=== PATIENT | female | born 2000 | race Caucasian/White ===

== ENCOUNTER 2018-02-08 13:16 | Outpatient (CLI) | payer MEDICAID, SELFPAY ==
[2018-02-09 11:05] LABS: Hepatitis C Ab w Rflx HCV PCR Negative (NEGAT)
[2018-02-09 11:06] LABS: Hepatitis B Surface Ag Negative (NEGAT)
[2018-02-09 11:24] LABS: HIV-1/2 Ag & Ab Screen Negative (NEGAT)
[2018-02-09 14:06] LABS: Syphilis Serology (RPR) Negative (Negative)
== END 2018-02-08 13:17 ==
PROVIDERS: PCP Pediatrics; Visit Provider Nurse Practitioner Women's Health
DX: Z11.3 Encounter for screening for infections with a predominantly sexual mode of transmission (principal); Z11.4 Encounter for screening for human immunodeficiency virus [HIV]; Z11.59 Encounter for screening for other viral diseases
CPT/HCPCS: 36415; 86803; 87340; 87389; 87491; 87591; 86592

== ENCOUNTER 2018-02-08 13:41 | Outpatient (REF) | payer MEDICAID, SELFPAY ==
[2018-02-09 14:35] LABS: Chlamydia Result Negative; GC Result Negative; Specimen Description CERVIX
== END 2018-02-08 13:42 ==
LOC: LBN 13:41
PROVIDERS: PCP Pediatrics; Visit Provider Nurse Practitioner Women's Health
DX: Z11.3 Encounter for screening for infections with a predominantly sexual mode of transmission (principal)
CPT/HCPCS: 87491; 87591

== ENCOUNTER 2018-02-22 01:04 | Outpatient (CLI) | payer MEDICAID, SELFPAY ==
--- NOTE | 2018-02-22 12:58 | DI.REPORT_ITS ---
SYMPTOM/DIAGNOSIS: IUD PLACEMENT, SURVEILLANCE Z30.431 PELVIC ULTRASOUND: 02/22 Pelvic ultrasound was performed transabdominally and transvaginally. Please see the accompanying data sheet for measurements of the pelvic structures. There is an IUD in place in the endometrial cavity. Myometrium is unremarkable in appearance. No free fluid identified in the cul de sac. Limited scanning of the kidneys is unremarkable. Right ovary contains an approximately 26 x 24 x 17 mm in diameter mass which is mildly heterogeneous and of solid echogenicity without internal vascular flow. This was present on previous examination of 12/21/2017 and was larger at that time, measuring about 38 x 33 x 27 mm. Simple cyst is also noted involving the left ovary measuring up to about 33 mm in diameter. The left ovary has a normal follicular appearance. CONCLUSION: Interval decrease in size of solid right ovarian mass. An additional follow up examination is suggested in approximately 8 weeks to re- evaluate this mass and assess the need for biopsy.
== END 2018-02-22 01:05 ==
PROVIDERS: PCP Nurse Practitioner Family; Visit Provider Nurse Practitioner Women's Health
DX: N83.8 Other noninflammatory disorders of ovary, fallopian tube and broad ligament (principal); N83.292 Other ovarian cyst, left side; Z30.431 Encounter for routine checking of intrauterine contraceptive device
CPT/HCPCS: 76830; 76856

== ENCOUNTER 2018-07-13 00:44 | Outpatient (CLI) | payer MEDICAID, SELFPAY ==
--- NOTE | 2018-07-13 14:15 | DI.US_ITS ---
SYMPTOMS/DIAGNOSIS: OVARIAN CYST, N83.209 PELVIC ULTRASOUND: Comparison is made with 27 September, 21 December and February,. Transabdominal and transvaginal exams were performed. A retroverted uterus with IUD is again noted. There is a small amount of fluid adjacent to the right ovary. There is a 1.9 cm in maximal dimension circumscribed hypoechoic nodule, which may represent further decrease of the previously noted solid nodule. A 2.2 cm cyst is seen. This may be the same cyst with decrease in size. There is a new complex cystic area on the right ovary measuring 4.8 cm x 4 x 2.4 cm. A 1.8 cm in maximal dimension solid avascular lesion is seen on the left ovary. The kidneys are unremarkable. IMPRESSION: Interval decrease in size of previously noted complex cyst of the right ovary. There is a new complex cyst of the right ovary, with both cysts again solid components. There is no evidence of ovarian torsion.
== END 2018-07-13 01:04 ==
PROVIDERS: PCP Nurse Practitioner Family; Visit Provider Nurse Practitioner Women's Health
DX: N83.292 Other ovarian cyst, left side (principal); N83.291 Other ovarian cyst, right side; N85.4 Malposition of uterus; Z97.5 Presence of (intrauterine) contraceptive device
CPT/HCPCS: 76830; 76856

== ENCOUNTER 2020-04-22 15:25 | Outpatient (REF) | payer MEDICAID, SELFPAY ==
--- NOTE | 2020-04-22 14:45 | PAPFT_PTH ---
PATIENT: SUSANNE RUTHERFORD LOC: [facility] U#:[id number] AGE/SX: 19/F ROOM: RE04/22/[address]: Vero Iverson NP : 2000 BED: DIS: 04/22/2020 SPEC #: [id number] RECD: 04/22/20 18:05 STATUS: SPENCER REAzam #: [id number] CLAUDIA: 04/22/20 14:[address]: Vero Iverson NP DEPT: [facility] Cytology RECD BY: Cris Rivera ENTERED: 04/22/20 18:06 SP TYPE: PAPFT OTHR DR: Negar Reyes Tissues: 1 - CX/ENDOCX FOR PAP SMEARS Procedures: PAP THIN PREP/UVM Screening Comments: [id number] (CHLAMYDIA/GC)
[2020-04-24 15:35] LABS: Chlamydia Result Negative (Negative); GC Result Negative (Negative)
== END 2020-04-22 15:45 ==
LOC: LBN 15:25
PROVIDERS: PCP Nurse Practitioner Family; Visit Provider Nurse Practitioner Women's Health
DX: Z12.4 Encounter for screening for malignant neoplasm of cervix (principal); Z11.3 Encounter for screening for infections with a predominantly sexual mode of transmission
CPT/HCPCS: 87491; 87591; 88142

== ENCOUNTER 2020-05-06 01:21 | Outpatient (CLI) | payer MEDICAID, SELFPAY ==
--- NOTE | 2020-05-06 08:30 | DI.US_ITS ---
EXAM: US PELVIS TRANSVAGINAL CLINICAL HISTORY: No IUD strings on exam. Hx complex ovarian cyst,pelvic pain,r10.2,z30.431,. TECHNIQUE: Transabdominal and transvaginal pelvic ultrasound was performed using standard protocol. COMPARISON: US US PELVIS TRANSVAGINAL from 07/13/2018 FINDINGS: KIDNEYS: Kidneys are symmetric in size. No evidence of renal calculi. No evidence of hydronephrosis. No renal mass or cyst identified. UTERUS: There is an IUD seen in good position within the endometrial canal. Position: Retroverted. Size: 5.5 long by 4.1 AP by 5.2 transverse cm Endometrium: 0.3 cm. Normal for patient's menstrual status. Myometrium: Unremarkable. Cervix: Unremarkable. OVARIES: Right: 6.4 x 5 x 5.5 cm Cyst or mass: There is a complex avascular 5.5 x 4.4 x 4.7 cm cyst. There is a 3.8 x 2.1 x 3.2 cm co mplex cyst. It contains a solid avascular component along its wall. Left: 3.7 x 1.7 x 2.6 cm Cyst or mass: Small follicular cysts. DOPPLER: Color: Symmetric and uniform flow to both ovaries. No hyperemia. Duplex: Normal ovarian arterial waveforms visualized. CUL-DE-SAC: Free fluid: None. Other: None. IMPRESSION: 1. Normal sonographic appearance of the kidneys. 2. Normal-appearing uterus with endometrial stripe within normal limits. The IUD is in good position within the uterus. 3. Two complex cystic lesions on the right ovary. The larger measures 5.5 cm. The smaller measures 3.8 cm. A follow-up pelvic ultrasound in 6 to 8 weeks is recommended to re-evaluate these lesions an d to document the resolution. These may reflect hemorrhagic cysts. DATA REPOSITORY:
== END 2020-05-06 01:41 ==
PROVIDERS: PCP Nurse Practitioner Family; Visit Provider Nurse Practitioner Women's Health
DX: N83.291 Other ovarian cyst, right side (principal); Z97.5 Presence of (intrauterine) contraceptive device; R10.2 Pelvic and perineal pain; N83.02 Follicular cyst of left ovary
CPT/HCPCS: 76830; 76856

== ENCOUNTER 2020-05-06 03:44 | Outpatient (CLI) | payer MEDICAID, SELFPAY ==
[2020-05-06 15:36] LABS: TSH (W/Ref FT4) 2.64 uIU/mL (0.36-3.74)
[2020-05-09 15:07] LABS: Testosterone, Free 0.24 ng/dL (0.06-1.08); Testosterone, Total 27 ng/dL (8-60)
== END 2020-05-06 04:04 ==
PROVIDERS: PCP Nurse Practitioner Family; Visit Provider Nurse Practitioner Women's Health
DX: N93.9 Abnormal uterine and vaginal bleeding, unspecified (principal); L68.0 Hirsutism
CPT/HCPCS: 36415; 84402; 84403; 84443

== ENCOUNTER 2020-05-15 16:58 | Outpatient (REF) | payer MEDICAID, SELFPAY ==
[2020-05-15 21:31] LABS: HCT 38.5 % (36.0-46.0); HGB 13.5 g/dL (11.2-15.7); MCH 31.3 pg (27.0-33.0); MCHC 35.1 % (32.0-36.0); MCV 89.3 fL (80-95); MPV 12.3 fL (8.0-11.0); Platelet Count 233 10^3/uL (130-400); RBC 4.31 10^6/uL (3.93-5.22); RDW 12.3 % (11.7-14.6); RDW-SD 40.5 fL; WBC 4.16 10^3/uL (4.4-10.8)
[2020-05-15 21:52] LABS: ALT 19 U/L (14-59); AST 14 U/L (15-37); Albumin 4.3 g/dL (3.4-5.0); Alkaline Phosphatase 62 U/L (46-116); BUN 12 mg/dL (7-18); Bilirubin, Total 0.4 mg/dL (0.2-1.0); CREATININE 0.65 mg/dL (0.55-1.02); Calcium 9.3 mg/dL (8.5-10.1); Chloride 106 mmol/L (98-107); Glucose 76 mg/dL (74-106); Potassium 3.9 mmol/L (3.5-5.1); Sodium 142 mmol/L (136-145); Total Protein 6.8 g/dL (6.4-8.2)
== END 2020-05-15 17:18 ==
LOC: NCHCN 16:58
PROVIDERS: PCP Nurse Practitioner Family; Visit Provider Nurse Practitioner Family
DX: R19.4 Change in bowel habit (principal)
CPT/HCPCS: 80053; 85027

== ENCOUNTER 2020-05-23 22:42 | Outpatient (REF) | payer MEDICAID, SELFPAY | END 2020-05-23 23:02 | LOC: NCHCN 22:42 | PROVIDERS: PCP Registered Nurse; Visit Provider Nurse Practitioner Family | DX: R19.4 Change in bowel habit (principal) | CPT/HCPCS: 82272; 83630 ==

== ENCOUNTER 2020-05-27 01:46 | Outpatient (CLI) | payer MEDICAID, SELFPAY ==
--- NOTE | 2020-05-27 06:30 | DI.US_ITS ---
EXAM: US PELVIS TRANSVAGINAL CLINICAL HISTORY: recheck OVARIAN CYST SIZE,N83.209 TECHNIQUE: Transabdominal and transvaginal imaging was performed using standard protocol. COMPARISON: US US PELVIS TRANSVAGINAL from 05/06/2020 FINDINGS: KIDNEYS: Kidneys are symmetric in size. No evidence of renal calculi. No evidence of hydronephrosis. No renal mass or cyst identified. UTERUS: Retroverted. Endometrium: An IUD is visualized within the endometrial cavity and appears appropriately positioned. Myometrium: Unremarkable. Cervix: Unremarkable. OVARIES: Right: Cyst or mass: The previously noted hemorrhagic cyst is no longer present. There is now a 3 ce ntimeter dominant follicle. A smaller involuting cyst is seen. Left: Cyst or mass: None. DOPPLER: Color: Symmetric and uniform flow to both ovaries. No hyperemia. Duplex: Normal ovarian arterial waveforms visualized. CUL-DE-SAC: Free fluid: None. IMPRESSION: 1. Normal-appearing uterus with endometrial stripe within normal limits. IUD in place. 2. Resolution of previously noted hemorrhagic cysts. DATA REPOSITORY:
== END 2020-05-27 02:06 ==
PROVIDERS: PCP Registered Nurse; Visit Provider Obstetrics & Gynecology
DX: N83.291 Other ovarian cyst, right side (principal); Z97.5 Presence of (intrauterine) contraceptive device
CPT/HCPCS: 76830; 76856